=== PATIENT | male | born 1960 | race African-American/Black ===

== ENCOUNTER 2018-03-25 17:53 | Emergency (ER) | payer SELFPAY ==
[~2018-03-25] VITALS: Ht 160 cm; Wt 56.0 kg
[2018-03-25 18:43] VITALS: BP 129/96
== END 2018-03-25 19:15 | disposition left against medical advice (07) ==
LOC: ER 19:10
DX: Z53.21 Procedure and treatment not carried out due to patient leaving prior to being seen by health care provider (principal)
CPT/HCPCS: 99281

== ENCOUNTER 2018-11-26 07:06 | Emergency (ER) | payer SELFPAY ==
[~2018-11-26] VITALS: Ht 162.6 cm; Wt 69.0 kg
[2018-11-26] MEDS ORDERED: LORAZEPAM 2MG/ML CPJ ONE (07:30)
[2018-11-26] MEDS ORDERED: LORAZEPAM 2MG/ML CPJ IV ONE (07:30)
[2018-11-26 08:38] LABS: HEMOGLOBIN. 13.2 g/dL (14.0-18.0); MEAN CORPUSCULAR HEMOGLOBIN 33.9 pg (28.0-32.0); MEAN CORPUSCULAR VOLUME 102.6 fL (80.0-94.0); MEAN PLATELET VOLUME 6.8 fl (7.4-10.4); PLATELET 310 x1000/uL (130-400); RED CELL DISTRIBUTION WIDTH 12.7 % (11.6-14.6)
[2018-11-26 08:44] LABS: CLARITY URINE CLOUDY (CLEAR); COLOR URINE YELLOW (YELLOW); KETONES URINE NEGATIVE (NEGATIVE); LEUKOCYTE ESTERASE URINE NEGATIVE (NEGATIVE); NITRITE URINE NEGATIVE (NEGATIVE); OCCULT BLOOD URINE TRACE (NEGATIVE); PH URINE 5.5 (4.5-8.0); PROTEIN URINE 1+ (NEGATIVE); SPECIFIC GRAVITY URINE 1.018 (1.005-1.030); UROBILINOGEN URINE 0.2 E.U./dL (0.2-1.0)
[2018-11-26 08:44] LABS: CHLORIDE 100 mEq/L (98-107)
[2018-11-26 08:48] LABS: ETHANOL BLOOD < 10 mg/dL
[2018-11-26 09:03] LABS: PLATELET ESTIMATE NORMAL
[2018-11-26 09:11] LABS: *BARBITURATES SCREEN URINE NEGATIVE (NEGATIVE)
[2018-11-26 09:12] LABS: *AMPHETAMINES SCREEN URINE NEGATIVE (NEGATIVE); *BENZODIAZEPINES SCREEN URINE NEGATIVE (NEGATIVE); *COCAINE SCREEN URINE PRESUMTIVE POSITIVE (NEGATIVE); METHADONE URINE SCREEN NEGATIVE (NEGATIVE); OPIATES URINE SCREEN NEGATIVE (NEGATIVE)
[2018-11-26 09:13] LABS: CANNABINOID URINE SCREEN PRESUMTIVE POSITIVE (NEGATIVE); PHENCYCLIDINE URINE SCREEN NEGATIVE (NEGATIVE)
[2018-11-26 12:00] VITALS: BP 134/96
== END 2018-11-26 12:02 | disposition home or self-care (01) ==
LOC: ER 07:06
DX: G40.909 Epilepsy, unspecified, not intractable, without status epilepticus (principal)
CPT/HCPCS: 36415; 70450; 71045; 80053; 80305; 80320; 81003; 82962; 85025; 93005; 96374; 99284; J2060; Z7610; G0480

== ENCOUNTER 2020-01-16 09:04 | Inpatient (IN) | payer OTHER ==
[~2020-01-16] VITALS: Ht 157.5 cm; Wt 63.5 kg
[2020-01-16] MEDS ORDERED: ONDANSETRON HCL 4MG/2ML INJ IV ONE (09:30)
[2020-01-16] MEDS ORDERED: FOLIC ACID 1 MG, THIAMINE HCL 100 MG, MVI, ADULT NO.1 10 ML in DEXTROSE 5% WATER 1,000 ML IV ONE ×4 (09:30)
[2020-01-16 09:51] LABS: CLARITY URINE CLEAR (CLEAR); COLOR URINE YELLOW (YELLOW); KETONES URINE TRACE (NEGATIVE); LEUKOCYTE ESTERASE URINE NEGATIVE (NEGATIVE); NITRITE URINE NEGATIVE (NEGATIVE); OCCULT BLOOD URINE TRACE (NEGATIVE); PH URINE 5.5 (4.5-8.0); PROTEIN URINE 2+ (NEGATIVE); SPECIFIC GRAVITY URINE 1.013 (1.005-1.030); UROBILINOGEN URINE 0.2 E.U./dL (0.2-1.0)
[2020-01-16] MEDS ORDERED: THIAMINE HCL 100 MG/1 ML 2ML VIAL ONE (10:00)
[2020-01-16 10:14] LABS: CHLORIDE 95 mEq/L (98-107)
[2020-01-16 10:16] LABS: BASOPHILS % 0.9 % (0.0-2.0); EOSINOPHILS % 0.8 % (0.0-5.0); HEMATOCRIT. 42.1 % (42.0-52.0); HEMOGLOBIN. 14.2 g/dL (14.0-18.0); LYMPHOCYTES % 9.3 % (20.0-50.0); MEAN CORPUSCULAR HEMOGLOBIN 34.3 pg (28.0-32.0); MEAN CORPUSCULAR VOLUME 101.5 fL (80.0-94.0); MEAN PLATELET VOLUME 8.1 fl (7.4-10.4); MONOCYTES % 5.7 % (2.0-8.0); NEUTROPHILS % 83.3 % (40.0-76.0); PLATELET 180 x1000/uL (130-400); RED BLOOD CELL COUNT 4.14 mill/uL (4.7-6.1); RED CELL DISTRIBUTION WIDTH 12.9 % (11.6-14.6)
[2020-01-16 10:18] LABS: ETHANOL BLOOD 21 mg/dL
[2020-01-16 10:24] LABS: *AMPHETAMINES SCREEN URINE NEGATIVE (NEGATIVE); *BARBITURATES SCREEN URINE NEGATIVE (NEGATIVE); *BENZODIAZEPINES SCREEN URINE NEGATIVE (NEGATIVE)
[2020-01-16 10:25] LABS: *COCAINE SCREEN URINE NEGATIVE (NEGATIVE); METHADONE URINE SCREEN NEGATIVE (NEGATIVE); OPIATES URINE SCREEN NEGATIVE (NEGATIVE); PHENCYCLIDINE URINE SCREEN NEGATIVE (NEGATIVE)
[2020-01-16 10:26] LABS: CANNABINOID URINE SCREEN NEGATIVE (NEGATIVE)
[2020-01-16] MEDS ORDERED: POTASSIUM CHLORIDE 20MEQ TABLET SR PO ONE (10:30)
[2020-01-16] MEDS ORDERED: LORAZEPAM 2MG/ML CPJ IV ONE (11:15)
[2020-01-16] MEDS ORDERED: CHLORDIAZEPOXIDE 25MG CAPSULE PO ONE (11:15)
[2020-01-16] MEDS ORDERED: MVI, ADULT NO.1 10 ML, FOLIC ACID 1 MG, THIAMINE HCL 100 MG in SODIUM CHLORIDE 0.9% 1,0... IV SCH ×4 (15:00)
[2020-01-16] MEDS ORDERED: ACETAMINOPHEN 325MG TABLET PO PRN (15:00)
[2020-01-16] MEDS ORDERED: IPRATROPIUM/ALBUTEROL 0.5-3(2.5)MG/3ML NEB HHN PRN (15:00)
[2020-01-16] MEDS ORDERED: LORAZEPAM 2MG/ML CPJ IV PRN ×2 (15:00)
[2020-01-16] MEDS ORDERED: CLONIDINE 0.1MG TABLET PO PRN (15:00)
[2020-01-16] MEDS ORDERED: ONDANSETRON HCL 4MG/2ML INJ IV PRN (15:00)
[2020-01-16 17:11] VITALS: BP 152/91
[2020-01-16 20:00] VITALS: BP 157/76
[2020-01-16] MEDS: CHLORDIAZEPOXIDE 25MG CAPSULE PO SCH (21:57)
[2020-01-17] VITALS: BP 158/105
[2020-01-17] MEDS: SODIUM CHLORIDE 0.9% 1,000 ML IV SCH ×3 (00:31→21:00)
[2020-01-17 04:00] VITALS: BP 143/86
[2020-01-17] MEDS: CHLORDIAZEPOXIDE 25MG CAPSULE PO SCH ×3 (05:25→21:14)
[2020-01-17 07:15] LABS: BASOPHILS % 1.2 % (0.0-2.0); EOSINOPHILS % 3.9 % (0.0-5.0); HEMATOCRIT. 40.6 % (42.0-52.0); HEMOGLOBIN. 13.9 g/dL (14.0-18.0); LYMPHOCYTES % 17.8 % (20.0-50.0); MEAN CORPUSCULAR HEMOGLOBIN 34.4 pg (28.0-32.0); MEAN CORPUSCULAR VOLUME 100.5 fL (80.0-94.0); MEAN PLATELET VOLUME 8.5 fl (7.4-10.4); MONOCYTES % 12.9 % (2.0-8.0); NEUTROPHILS % 64.2 % (40.0-76.0); PLATELET 186 x1000/uL (130-400); RED BLOOD CELL COUNT 4.04 mill/uL (4.7-6.1); RED CELL DISTRIBUTION WIDTH 12.6 % (11.6-14.6)
[2020-01-17 07:44] LABS: CHLORIDE 96 mEq/L (98-107)
[2020-01-17 07:51] LABS: LDL CHOLESTEROL 102 mg/dL (5-100)
[2020-01-17 07:53] LABS: HDL CHOLESTEROL 107 mg/dL (40-59)
[2020-01-17 08:00] VITALS: BP 132/96
[2020-01-17 08:03] LABS: FOLIC ACID (FOLATE) SERUM 18.9 ng/mL (>5.38)
[2020-01-17] MEDS: THIAMINE HCL 100MG TABLET PO SCH (09:23)
[2020-01-17] MEDS: AMLODIPINE 5MG TABLET PO SCH (09:23)
[2020-01-17] MEDS: MULTIVITAMINS,THER W-MINERALS TABLET PO SCH (09:23)
[2020-01-17] MEDS: FOLIC ACID 1MG TABLET PO SCH (09:23)
[2020-01-17 11:56] LABS: HEPATITIS B SURFACE ANTIGEN NEGATIVE
[2020-01-17 12:00] VITALS: BP 132/90
[2020-01-17 12:25] LABS: HEPATITIS A AB IGM NEGATIVE (NEGATIVE)
[2020-01-17] MEDS: LACTULOSE 20G/30ML UDC PO SCH ×2 (15:03→21:14)
[2020-01-17 16:00] VITALS: BP 122/80
[2020-01-17 19:55] VITALS: BP 124/85
[2020-01-18] VITALS: BP 134/90
[2020-01-18 04:00] VITALS: BP 120/82
[2020-01-18 04:06] LABS: HIV SCREEN 4G Non Reactive (Non Reactive)
[2020-01-18] MEDS: CHLORDIAZEPOXIDE 25MG CAPSULE PO SCH ×3 (06:09→21:05)
[2020-01-18] MEDS: LACTULOSE 20G/30ML UDC PO SCH ×2 (06:10→17:00)
[2020-01-18] MEDS: SODIUM CHLORIDE 0.9% 1,000 ML IV SCH ×2 (07:00→17:00)
[2020-01-18 07:01] LABS: CHLORIDE 101 mEq/L (98-107)
[2020-01-18 07:12] LABS: PHOSPHORUS 4.7 mg/dL (2.5-4.9)
[2020-01-18 08:00] VITALS: BP 133/83
[2020-01-18] MEDS ORDERED: PNEUMOCOCCAL 23-VAL P-SAC VAC 0.5 ML IM ONE (08:30)
[2020-01-18] MEDS: AMLODIPINE 5MG TABLET PO SCH (08:57)
[2020-01-18] MEDS: THIAMINE HCL 100MG TABLET PO SCH (08:58)
[2020-01-18] MEDS: MULTIVITAMINS,THER W-MINERALS TABLET PO SCH (08:58)
[2020-01-18] MEDS: FOLIC ACID 1MG TABLET PO SCH (08:58)
[2020-01-18 09:06] LABS: HEMATOCRIT. 43.4 % (42.0-52.0); HEMOGLOBIN. 14.5 g/dL (14.0-18.0); MEAN CORPUSCULAR HEMOGLOBIN 34.6 pg (28.0-32.0); MEAN CORPUSCULAR VOLUME 103.5 fL (80.0-94.0); RED BLOOD CELL COUNT 4.19 mill/uL (4.7-6.1); RED CELL DISTRIBUTION WIDTH 13.1 % (11.6-14.6)
[2020-01-18] MEDS: LORAZEPAM 2MG/ML CPJ IM PRN ×2 (09:11→18:37)
[2020-01-18 12:00] VITALS: BP 117/70
[2020-01-18 13:56] LABS: PLATELET ESTIMATE NORMAL
[2020-01-18 16:00] VITALS: BP 122/83
[2020-01-18 20:00] VITALS: BP 102/65
[2020-01-18] MEDS ORDERED: ATORVASTATIN CALCIUM 40MG TABLET PO SCH (21:00)
[2020-01-19] VITALS: BP 133/61
[2020-01-19] MEDS: SODIUM CHLORIDE 0.9% 1,000 ML IV SCH (03:00)
[2020-01-19 04:00] VITALS: BP 140/71
[2020-01-19] MEDS: CHLORDIAZEPOXIDE 25MG CAPSULE PO SCH (06:26)
[2020-01-19 07:42] LABS: HEMATOCRIT. 40.7 % (42.0-52.0); HEMOGLOBIN. 13.5 g/dL (14.0-18.0); MEAN CORPUSCULAR HEMOGLOBIN 33.8 pg (28.0-32.0); MEAN CORPUSCULAR VOLUME 101.7 fL (80.0-94.0); MEAN PLATELET VOLUME 8.1 fl (7.4-10.4); PLATELET 220 x1000/uL (130-400)
[2020-01-19 07:51] LABS: CHLORIDE 101 mEq/L (98-107)
[2020-01-19] MEDS: LACTULOSE 20G/30ML UDC PO SCH ×2 (08:26→09:00)
[2020-01-19] MEDS: THIAMINE HCL 100MG TABLET PO SCH ×2 (08:26→09:00)
[2020-01-19] MEDS: MULTIVITAMINS,THER W-MINERALS TABLET PO SCH ×2 (08:26→09:00)
[2020-01-19] MEDS: FOLIC ACID 1MG TABLET PO SCH ×2 (08:26→09:00)
[2020-01-19] MEDS ORDERED: LEVETIRACETAM 500MG TABLET PO SCH (09:00)
[2020-01-19] MEDS: AMLODIPINE 5MG TABLET PO SCH (09:00)
[2020-01-19 12:03] LABS: NUCLEATED RED BLOOD CELLS 1 /100 WBC; PLATELET ESTIMATE NORMAL
== END 2020-01-19 08:20 | disposition left against medical advice (07) | DRG 816 ==
LOC: ER 09:11 → EDBEDREQ 11:50 → EDBEDREQTM 11:50 → ENRESERV 15:39 → 5WST 16:50
PROVIDERS: ADMIT Internal Medicine; ATTEND Internal Medicine
DX: T51.91XA Toxic effect of unspecified alcohol, accidental (unintentional), initial encounter (principal); G92 Toxic encephalopathy; E72.20 Disorder of urea cycle metabolism, unspecified; E87.8 Other disorders of electrolyte and fluid balance, not elsewhere classified; K76.0 Fatty (change of) liver, not elsewhere classified; E87.1 Hypo-osmolality and hyponatremia; F10.239 Alcohol dependence with withdrawal, unspecified; G40.909 Epilepsy, unspecified, not intractable, without status epilepticus; E87.6 Hypokalemia; E78.5 Hyperlipidemia, unspecified; I10 Essential (primary) hypertension; Y90.1 Blood alcohol level of 20-39 mg/100 ml; D75.89 Other specified diseases of blood and blood-forming organs; D72.810 Lymphocytopenia; D72.821 Monocytosis (symptomatic); F12.10 Cannabis abuse, uncomplicated; E86.0 Dehydration; R00.0 Tachycardia, unspecified; Z53.29 Procedure and treatment not carried out because of patient's decision for other reasons; R80.9 Proteinuria, unspecified; F10.229 Alcohol dependence with intoxication, unspecified; Z91.14 Patient's other noncompliance with medication regimen; Z59.0 Homelessness; Y92.89 Other specified places as the place of occurrence of the external cause; Z79.899 Other long term (current) drug therapy
CPT/HCPCS: 36415; 76705; 80048; 80053; 80061; 80305; 80307; 80320; 80329; 81003; 82140; 82607; 82746; 82962; 83036; 83735; 84100; 85025; 86705; 86709; 86803; 87340; 87389; 90732; 99285; J2060; J2405; J3411; J3490; J7070; G0480